=== PATIENT | male | born 1930 | race Caucasian/White ===

== ENCOUNTER → 2018-06-30 | Outpatient (CLI) | payer MEDICARE ==
[~2018-06-30] MED LIST: ALDACTONE 25MG25 M1 PO; ALDACTONE 25MG25 MG PO; ARICEPT10 MG PO; ASMANEX TW0.22 MG/A1 IH; ASPIRIN E.C. 8181 MG PO; ATROVENT INHALE14 GM IH; ATROVENT NASAL15 ML NS; ATROVENTNS0.03% NS; BISOPROLOL5 MG PO; BYSTOLIC5 MG PO; CALCIUM1 CAP PO; CARVEDILOL12.5 MG PO; CEPHALEXIN500 M1 PO; COREG12.5 MG PO; COUMADIN 5MG5 MG/TAB PO; EFFEXOR-XR150 MG PO; FISH OIL 1000MG1 CAP PO; FLOMAX 0.40.4 MG/CAP PO; FLOMAX0.4 MG PO; FORADIL IH; FUROSEMIDE40 MG PO; KLOR-CON M2020 MEQ PO; LASIX 40MG TABL40 MG PO; LEVAQUIN 750MG750 M1 PO; LEVITRA20 MG PO; LORTAB 7.5/5001 TAB PO; MOBIC15 MG PO; MULTIPLE VITAMI1 CAP PO; NITROSTAT0.4 MG/TAB SL; PREDNISONE20 MG PO; RT SPIRIVA18 MCG IH; SPIRIVA RE2.5 MCG/Ac IH; THEO-DUR 1100 MG/TAB PO; TYLENOL 325MG325 MG PO; TYLENOL PM EXTR1 TA1 PO; VENLAFAXINE150 MG PO; VENTOLIN0.09 MG IH; WARFARIN SOD5 MG PO; ZIAC 10/6.25M1 UDTAB PO; ZOCOR 80MG80 MG PO
== END ==
LOC: MC.RAD 10:00
DX: N63.41 Unspecified lump in right breast, subareolar (principal); Z95.0 Presence of cardiac pacemaker

== ENCOUNTER → 2020-01-31 | Outpatient (CLI) | payer MEDICARE | LOC: ZCOL.LAB 12:50 | DX: Z20.828 Contact with and (suspected) exposure to other viral communicable diseases (principal) ==